=== PATIENT | female | born 1990 | race African-American/Black ===

== ENCOUNTER 2020-05-25 21:46 | Inpatient (IN) | payer MEDICAID ==
[~2020-05-25] VITALS: Ht 157.5 cm; Wt 73.5 kg
[~2020-05-25 21:46] MED LIST: PENICILLIN G POTASSIUM 2.5 MMU in DEXTROSE 5% WATER 50 ML IV SCH
[2020-05-25] MEDS ORDERED: DEXT 5%/LR + PITOCIN 20UNITS/L 1,000 ML IV SCH (22:45)
[2020-05-25] MEDS ORDERED: CARBOPROST TROMETHAMINE 250 MCG/ML AMPUL IM PRN (22:45)
[2020-05-25] MEDS ORDERED: FERR325T6 PO (22:45)
[2020-05-25] MEDS ORDERED: MISOPROSTOL 100MCG TABLET VG SCH (22:45)
[2020-05-25] MEDS ORDERED: PNV1TABL50 PO (22:45)
[2020-05-25] MEDS ORDERED: CITRIC ACID/SODIUM CITRATE SOLN 30ML UDC PO NR (22:45)
[2020-05-25] MEDS ORDERED: METHYLERGONOVINE MALEATE 0.2 MG/ML IM PRN (22:45)
[2020-05-25] MEDS ORDERED: ACYCLOVIR (22:45)
[2020-05-25] MEDS: LACTATED RINGERS 1,000 ML IV SCH (23:21)
[2020-05-25] MEDS: PENICILLIN G POTASSIUM 5 MMU in DEXT 5% WATER 100 ML IV NR ×2 (23:22→23:26)
[2020-05-25] MEDS ORDERED: FENTANYL CITRATE/PF 50MCG/ML 2ML VIAL ONE (23:36)
[2020-05-25] MEDS ORDERED: OXYTOCIN 10 UNITS/ML 1ML ONE (23:36)
[2020-05-25] MEDS ORDERED: CEFAZOLIN SODIUM 1000MG/VIAL ONE (23:36)
[2020-05-25] MEDS ORDERED: EPHEDRINE SULFATE 50MG/ML VIAL ONE (23:36)
[2020-05-25] MEDS ORDERED: ONDANSETRON HCL 4MG/2ML INJ ONE (23:36)
[2020-05-25] MEDS ORDERED: MORPHINE SULFATE/PF 1MG/ML 10ML AMP ONE (23:36)
[2020-05-25 23:47] LABS: BASOPHILS % 0.7 % (0.0-2.0); EOSINOPHILS % 0.5 % (0.0-5.0); HEMATOCRIT. 35.2 % (36.0-48.0); HEMOGLOBIN. 11.9 g/dL (12.0-16.0); LYMPHOCYTES % 13.4 % (20.0-50.0); MEAN CORPUSCULAR HEMOGLOBIN 29.2 pg (28.0-32.0); MEAN CORPUSCULAR VOLUME 86.5 fL (81.0-99.0); MEAN PLATELET VOLUME 8.7 fl (7.4-10.4); MONOCYTES % 10.2 % (2.0-8.0); NEUTROPHILS % 75.2 % (40.0-76.0); PLATELET 156 x1000/uL (130-400); RED BLOOD CELL COUNT 4.07 mill/uL (4.2-5.4); RED CELL DISTRIBUTION WIDTH 13.6 % (11.6-14.6)
[2020-05-26 00:01] LABS: CLARITY URINE CLOUDY (CLEAR); COLOR URINE YELLOW (YELLOW); KETONES URINE NEGATIVE (NEGATIVE); LEUKOCYTE ESTERASE URINE 1+ (NEGATIVE); NITRITE URINE NEGATIVE (NEGATIVE); OCCULT BLOOD URINE 3+ (NEGATIVE); PH URINE 6.5 (4.5-8.0); PROTEIN URINE TRACE (NEGATIVE)
[2020-05-26 00:01] LABS: INR 0.9; PARTIAL THROMBOPLASTIN TIME 25.4 sec (23.4-31.0); PROTHROMBIN TIME 9.7 sec (9.6-11.0)
[2020-05-26 00:16] LABS: *AMPHETAMINES SCREEN URINE NEGATIVE (NEGATIVE); *BARBITURATES SCREEN URINE NEGATIVE (NEGATIVE); *BENZODIAZEPINES SCREEN URINE NEGATIVE (NEGATIVE); *COCAINE SCREEN URINE NEGATIVE (NEGATIVE); METHADONE URINE SCREEN NEGATIVE (NEGATIVE)
[2020-05-26 00:17] LABS: CANNABINOID URINE SCREEN NEGATIVE (NEGATIVE); OPIATES URINE SCREEN NEGATIVE (NEGATIVE); PHENCYCLIDINE URINE SCREEN NEGATIVE (NEGATIVE)
[2020-05-26 00:24] LABS: HEPATITIS B SURFACE ANTIGEN NEGATIVE
[2020-05-26] MEDS: LACTATED RINGERS 1,000 ML IV SCH (00:30)
[2020-05-26] MEDS ORDERED: MIDAZOLAM HCL 2 MG/2 ML VIAL ONE ×2 (02:06→02:16)
[2020-05-26] MEDS ORDERED: DIPHENHYDRAMINE 50MG/ML VIAL ONE (02:32)
[2020-05-26] MEDS ORDERED: KETOROLAC 60MG/2ML VIAL IM ONE (02:32)
[2020-05-26] MEDS ORDERED: NALOXONE HCL 0.4 MG/ML 1ML VIAL IV PRN (03:15)
[2020-05-26] MEDS ORDERED: BUTORPHANOL TARTRATE 2 MG/ML VIAL IV PRN (03:15)
[2020-05-26] MEDS ORDERED: DIPHENHYDRAMINE 50MG/ML VIAL IV PRN (03:15)
[2020-05-26] MEDS ORDERED: ONDANSETRON HCL 4MG/2ML INJ IV PRN (03:45)
[2020-05-26] MEDS ORDERED: LANOLIN OINT 7GM TUBE TOP PRN (03:45)
[2020-05-26] MEDS ORDERED: BISACODYL 10MG SUPP PR PRN (03:45)
[2020-05-26] MEDS ORDERED: HEMORRHOIDAL SUPP PR PRN (03:45)
[2020-05-26] MEDS ORDERED: DIPHENHYDRAMINE 25MG CAPSULE PO PRN (03:45)
[2020-05-26] MEDS ORDERED: IBUPROFEN 400MG TABLET PO PRN (03:45)
[2020-05-26] MEDS ORDERED: HYDROCODONE/ACETAMINOPHEN 5/325MG TABLET PO PRN (03:45)
[2020-05-26] MEDS ORDERED: PENICILLIN G POTASSIUM 2.5 MMU in DEXTROSE 5% WATER 50 ML IV SCH (04:00)
[2020-05-26] MEDS: DEXT 5%/LR + PITOCIN 20UNITS/L 1,000 ML IV SCH ×3 (04:07→20:46)
[2020-05-26 04:15] VITALS: BP 118/76
[2020-05-26] MEDS: MAGNESIUM/ALUMINUM HYDROXIDE/SIMETHICONE 30ML UDC PO SCH ×4 (07:30→21:00)
[2020-05-26 08:00] VITALS: BP 95/66
[2020-05-26] MEDS: SIMETHICONE 80MG TABLET CHEW PO SCH ×4 (08:00→21:00)
[2020-05-26] MEDS: PRENATAL VIT/FE FUMARATE/FA TABLET PO SCH (09:00)
[2020-05-26] MEDS: KETOROLAC 30MG/ML VIAL IV SCH ×2 (09:25→15:17)
[2020-05-26 15:41] VITALS: BP 95/56
[2020-05-26 19:30] VITALS: BP 103/58
[2020-05-26] MEDS: DOCUSATE SODIUM 100MG CAPSULE PO SCH (21:00)
[2020-05-27 00:05] VITALS: BP 102/56
[2020-05-27] MEDS: IBUPROFEN 800MG TABLET PO PRN ×3 (03:29→20:38)
[2020-05-27 03:30] VITALS: BP 100/54
[2020-05-27] MEDS: FERROUS SULFATE 325MG TABLET PO SCH ×3 (07:30→17:30)
[2020-05-27] MEDS: MAGNESIUM/ALUMINUM HYDROXIDE/SIMETHICONE 30ML UDC PO SCH ×4 (07:30→20:48)
[2020-05-27 08:00] VITALS: BP 116/68
[2020-05-27] MEDS: SIMETHICONE 80MG TABLET CHEW PO SCH ×4 (08:00→20:49)
[2020-05-27] MEDS: PRENATAL VIT/FE FUMARATE/FA TABLET PO SCH (09:00)
[2020-05-27 10:05] LABS: HEMATOCRIT. 27.8 % (36.0-48.0); HEMOGLOBIN. 9.3 g/dL (12.0-16.0); MEAN CORPUSCULAR HEMOGLOBIN 29.2 pg (28.0-32.0); MEAN CORPUSCULAR VOLUME 87.4 fL (81.0-99.0); MEAN PLATELET VOLUME 8.7 fl (7.4-10.4); PLATELET 133 x1000/uL (130-400); RED BLOOD CELL COUNT 3.18 mill/uL (4.2-5.4)
[2020-05-27 13:50] LABS: PLATELET ESTIMATE NORMAL
[2020-05-27 15:25] VITALS: BP 101/65
[2020-05-27 20:00] VITALS: BP 119/81
[2020-05-27] MEDS: DOCUSATE SODIUM 100MG CAPSULE PO SCH (20:47)
[2020-05-28] VITALS: BP 112/73
[2020-05-28] MEDS: IBUPROFEN 800MG TABLET PO PRN ×2 (02:40→08:38)
[2020-05-28 04:00] VITALS: BP 125/74
[2020-05-28 05:11] LABS: BASOPHILS % 0.5 % (0.0-2.0); EOSINOPHILS % 2.4 % (0.0-5.0); HEMATOCRIT. 26.9 % (36.0-48.0); HEMOGLOBIN. 8.8 g/dL (12.0-16.0); MEAN CORPUSCULAR HEMOGLOBIN 28.9 pg (28.0-32.0); MEAN CORPUSCULAR VOLUME 88.3 fL (81.0-99.0); MEAN PLATELET VOLUME 8.4 fl (7.4-10.4); MONOCYTES % 8.1 % (2.0-8.0); PLATELET 146 x1000/uL (130-400); RED BLOOD CELL COUNT 3.05 mill/uL (4.2-5.4)
[2020-05-28] MEDS: FERROUS SULFATE 325MG TABLET PO SCH (07:30)
[2020-05-28] MEDS: SIMETHICONE 80MG TABLET CHEW PO SCH (08:00)
[2020-05-28] MEDS: MAGNESIUM/ALUMINUM HYDROXIDE/SIMETHICONE 30ML UDC PO SCH (08:38)
[2020-05-28 09:00] VITALS: BP 112/65
[2020-05-28] MEDS: PRENATAL VIT/FE FUMARATE/FA TABLET PO SCH (09:00)
[2020-05-28] MEDS ORDERED: IBUP-2030 PO (09:06)
== END 2020-05-28 12:00 | disposition home or self-care (01) | DRG 540 ==
LOC: 8 EST LDRP 21:46 → OBSVTOIN 21:46 → 8EST 05-26 05:30
PROVIDERS: ADMIT Obstetrics & Gynecology; ATTEND Obstetrics & Gynecology
PROC: 10D00Z1 Extraction of Products of Conception, Low, Open Approach (ICD-10-PCS; principal; 2020-05-26)
DX: O34.211 Maternal care for low transverse scar from previous cesarean delivery (principal); O99.02 Anemia complicating childbirth; Z37.0 Single live birth
CPT/HCPCS: 36415; 80305; 81003; 85025; 86592; 86703; 86762; 86850; 86900; 87340; 88307; 99281; J0690; J1200; J1885; J2250; J2274; J2405; J2540; J2590; J3010; J3490; J7060; J7120

== ENCOUNTER 2023-07-06 12:01 | Emergency (ER) | payer MEDICAID ==
[~2023-07-06] VITALS: Ht 165.1 cm; Wt 50.0 kg
[~2023-07-06 12:01] MED LIST changes: +ACYCLOVIR; +FERR325T6 PO; +IBUP-2030 PO; -PENICILLIN G POTASSIUM 2.5 MMU in DEXTROSE 5% WATER 50 ML IV SCH; +PNV1TABL50 PO
[2023-07-06 12:07] VITALS: O2SAT 99
[2023-07-06] MEDS ORDERED: IBUP-2029 MT (13:45)
[2023-07-06] MEDS: KETOROLAC 30MG/ML VIAL IM ONE (13:46)
[2023-07-06 14:17] VITALS: BP 108/84; PULSE 74; RESP 18; TEMP 98.7
== END 2023-07-06 14:50 | disposition home or self-care (01) ==
LOC: ER 12:01
DX: R51.9 Headache, unspecified (principal)
CPT/HCPCS: 99283; 81025; 96372; J1885

== ENCOUNTER 2023-12-29 07:44 | Emergency (ER) | payer MEDICAID, OTHER ==
[~2023-12-29] VITALS: Ht 157.5 cm; Wt 129.0 kg
[~2023-12-29 07:44] MED LIST changes: +IBUP-2029 MT
[2023-12-29 07:47] VITALS: O2SAT 100
[2023-12-29 07:49] VITALS: BP 105/73; PULSE 88; RESP 16
[2023-12-29 08:24] LABS: HEMOGLOBIN. 9.9 g/dL (12.0-16.0); MEAN CORPUSCULAR HEMOGLOBIN 27.5 pg (28.0-32.0); MEAN CORPUSCULAR HGB CONC 31.9 g/dL (31.0-37.0); MEAN CORPUSCULAR VOLUME 86.2 fL (81.0-99.0); MEAN PLATELET VOLUME 7.8 fl (7.4-10.4); PLATELET 236 x1000/uL (130-400); RED CELL DISTRIBUTION WIDTH 14.2 % (11.6-14.6); WHITE BLOOD COUNT 13.2 x1000/uL (4.5-11.0)
[2023-12-29 08:25] LABS: DIFFERENTIAL COMMENT 1
[2023-12-29 08:35] LABS: CHLORIDE 106 mEq/L (98-107); POTASSIUM 3.9 mEq/L (3.5-5.1); SODIUM 136 mEq/L (136-145)
[2023-12-29 08:36] LABS: CALCIUM 9.4 mg/dL (8.7-10.4); CARBON DIOXIDE 25 mEq/L (21-32)
[2023-12-29 08:41] LABS: CREATININE 0.6 mg/dL (0.6-1.0); GLUCOSE 72 mg/dL (70-105); UREA NITROGEN BLOOD 12 mg/dL (9-23)
[2023-12-29 09:27] LABS: CLARITY URINE CLEAR (CLEAR); COLOR URINE YELLOW (YELLOW); GLUCOSE URINE NEGATIVE (NEGATIVE); KETONES URINE NEGATIVE (NEGATIVE); LEUKOCYTE ESTERASE URINE NEGATIVE (NEGATIVE); NITRITE URINE NEGATIVE (NEGATIVE); OCCULT BLOOD URINE NEGATIVE (NEGATIVE); PROTEIN URINE TRACE (NEGATIVE); SPECIFIC GRAVITY URINE 1.027 (1.005-1.030)
[2023-12-29 09:42] VITALS: TEMP 98
[2023-12-29] MEDS: ACETAMINOPHEN 325MG TABLET PO ONE (09:42)
[2023-12-29 10:08] LABS: WBC URINE 0-2 /hpf (0-2)
[2023-12-29 10:09] LABS: BACTERIA URINE TRACE; RBC URINE NONE SEEN /hpf (0-2); SQUAMOUS EPITHELIAL CELL URINE 2+ /lpf (RARE/1+)
[2023-12-29 13:23] LABS: PLATELET ESTIMATE NORMAL
== END 2023-12-29 11:18 | disposition home or self-care (01) ==
LOC: ER 07:44
DX: O99.119 Other diseases of the blood and blood-forming organs and certain disorders involving the immune mechanism complicating pregnancy, unspecified trimester (principal); D64.9 Anemia, unspecified; Z79.899 Other long term (current) drug therapy; Z3A.00 Weeks of gestation of pregnancy not specified
CPT/HCPCS: 36415; 80048; 81003; 85025; 99283